=== PATIENT | male | born 2000 | race Caucasian/White ===

== ENCOUNTER 2023-11-23 14:15 | Emergency (ER) | payer BC ==
[~2023-11-23] VITALS: Ht 182.9 cm; Wt 90.7 kg
[2023-11-23 14:32] VITALS: BP 147/83
== END 2023-11-23 17:14 | disposition home or self-care (01) ==
LOC: ER 14:15
DX: F41.9 Anxiety disorder, unspecified (principal)
CPT/HCPCS: 93005; 93010; 99284-25